=== PATIENT | female | born 1955 | race Caucasian/White ===

== ENCOUNTER → 2016-08-13 | Outpatient (CLI) | payer OTHER | LOC: KOH-I 08:15 | DX: M25.511 Pain in right shoulder (principal); M54.5 Low back pain; M19.011 Primary osteoarthritis, right shoulder; M47.894 Other spondylosis, thoracic region | CPT/HCPCS: 72070; 73030 ==

== ENCOUNTER 2016-08-31 09:34 | Emergency (ER) | payer OTHER | END 2016-08-31 12:50 | disposition home or self-care (01) | LOC: ER1 09:34 | DX: M19.011 Primary osteoarthritis, right shoulder (principal); M47.816 Spondylosis without myelopathy or radiculopathy, lumbar region; M25.552 Pain in left hip; J44.9 Chronic obstructive pulmonary disease, unspecified; I10 Essential (primary) hypertension; Z90.49 Acquired absence of other specified parts of digestive tract; Z79.899 Other long term (current) drug therapy | CPT/HCPCS: 72100; 73502; 96372; 99283; J1885 ==

== ENCOUNTER 2021-04-28 21:46 | Inpatient (IN) | payer MEDICARE, OTHER ==
[~2021-04-28] VITALS: Ht 175.3 cm; Wt 120.2 kg
[2021-04-28 23:20] LABS: RED BLOOD COUNT 5.19 M/UL (4.00-5.10); WHITE BLOOD COUNT 8.8 K/UL (4.5-11.0)
[2021-04-28 23:46] LABS: BUN/CREATININE RATIO 20 (0-10)
[2021-04-29 02:11] LABS: HEMOGLOBIN 10.2 gm/dl (12.3-15.3); RED BLOOD COUNT 4.83 M/UL (4.00-5.10); WHITE BLOOD COUNT 8.3 K/UL (4.5-11.0)
[2021-04-29 02:44] LABS: BUN/CREATININE RATIO 23 (0-10)
[2021-05-01 02:48] LABS: HEMOGLOBIN 9.8 gm/dl (12.3-15.3); RED BLOOD COUNT 4.63 M/UL (4.00-5.10); WHITE BLOOD COUNT 9.2 K/UL (4.5-11.0)
[2021-05-01 16:14] LABS: ORGANISM ID Not indicated. (.); SPECIMEN SOURCE Urine (.); STREPTOCOCCUS PNEUMONIAE AG Negative (Negative)
[2021-05-02 02:44] LABS: HEMOGLOBIN 9.5 gm/dl (12.3-15.3); RED BLOOD COUNT 4.52 M/UL (4.00-5.10); WHITE BLOOD COUNT 8.4 K/UL (4.5-11.0)
--- NOTE | 2021-05-02 14:45 | NUR ---
PATIENTS ROOM AIR SATURATION IS 86%.
[2021-05-03 04:29] LABS: HEMOGLOBIN 9.2 gm/dl (12.3-15.3); RED BLOOD COUNT 4.36 M/UL (4.00-5.10)
[2021-05-03 04:45] LABS: WHITE BLOOD COUNT 6.2 K/UL (4.5-11.0)
[2021-05-03] MEDS ORDERED: LISINOPRIL10 MG PO (09:52)
[2021-05-03] MEDS ORDERED: LEVOFLOXACIN750 MG PO (09:52)
[2021-05-03] MEDS ORDERED: COMBIVENT RESPIM4 GM INH (09:52)
[2021-05-03] MEDS ORDERED: SPIRIVA HANDIH18 MCG INH (09:52)
[2021-05-03] MEDS ORDERED: PREDNISONE20 MG PO (09:52)
== END 2021-05-03 11:34 | disposition home or self-care (01) | DRG 189 ==
LOC: ER1 21:46 → CDU 04-29 06:46 → PROG CARE 04-29 06:46
PROVIDERS: Family Medicine; Internal Medicine; ADMIT Internal Medicine
PROC: 3E03329 Introduction of Other Anti-infective into Peripheral Vein, Percutaneous Approach (ICD-10-PCS; principal; 2021-04-29)
PROC: B24BZZZ Ultrasonography of Heart with Aorta (ICD-10-PCS; 2021-04-29)
PROC: 5A09357 Assistance with Respiratory Ventilation, Less than 24 Consecutive Hours, Continuous Positive Airway Pressure (ICD-10-PCS; 2021-04-29)
PROC: 0B968ZZ Drainage of Right Lower Lobe Bronchus, Via Natural or Artificial Opening Endoscopic (ICD-10-PCS; 2021-04-30)
PROC: 0B9K8ZZ Drainage of Right Lung, Via Natural or Artificial Opening Endoscopic (ICD-10-PCS; 2021-04-30)
PROC: 0B948ZZ Drainage of Right Upper Lobe Bronchus, Via Natural or Artificial Opening Endoscopic (ICD-10-PCS; 2021-04-30)
PROC: 0B9D8ZZ Drainage of Right Middle Lung Lobe, Via Natural or Artificial Opening Endoscopic (ICD-10-PCS; 2021-04-30)
PROC: 0B938ZZ Drainage of Right Main Bronchus, Via Natural or Artificial Opening Endoscopic (ICD-10-PCS; 2021-04-30)
DX: J96.21 Acute and chronic respiratory failure with hypoxia (principal); J44.1 Chronic obstructive pulmonary disease with (acute) exacerbation; E66.2 Morbid (severe) obesity with alveolar hypoventilation; I50.32 Chronic diastolic (congestive) heart failure; J98.11 Atelectasis; Z20.822 Contact with and (suspected) exposure to COVID-19; J96.22 Acute and chronic respiratory failure with hypercapnia; G47.33 Obstructive sleep apnea (adult) (pediatric); I11.0 Hypertensive heart disease with heart failure; F17.210 Nicotine dependence, cigarettes, uncomplicated; D64.9 Anemia, unspecified; Z99.81 Dependence on supplemental oxygen; Z90.49 Acquired absence of other specified parts of digestive tract; Z90.710 Acquired absence of both cervix and uterus; Z68.39 Body mass index [BMI] 39.0-39.9, adult
CPT/HCPCS: ECHO; 36415; 36600; 70450; 71045; 71250; 71275; 80048; 80053; 81001; 82140; 82533; 82550; 82553; 82803; 83036; 83605; 83735; 83874; 83880; 84100; 84439; 84443; 84484; 85025; 85379; 85610; 87015; 87040; 87070; 87081; 87116; 87205; 87206; 87252; 87899; 93005; 93306; 93970; 94640; 94660; 94664; 94760; 96374; 96375; 96376; 97116-GP-CQ; 97162; 97165; 97535; 99285; J1650; J1956; J2250; J2704; J2920; J2930; J7040; Q9967; U0002

== ENCOUNTER → 2021-05-07 | Outpatient (CLI) | payer MEDICARE, OTHER ==
[~2021-05-07] MED LIST: COMBIVENT RESPIM4 GM INH; LEVOFLOXACIN750 MG PO; LISINOPRIL10 MG PO; PREDNISONE20 MG PO; SPIRIVA HANDIH18 MCG INH
== END ==
LOC: HEART 5 14:35
DX: R06.02 Shortness of breath (principal)
CPT/HCPCS: 94060; 94729